=== PATIENT | female | born 1945 | race Caucasian/White ===

== ENCOUNTER 2023-11-15 08:46 | Inpatient (IN) | payer MEDICARE, OTHER, SELFPAY ==
[2023-11-08 12:35] VITALS: BMI 35.4
[2023-11-15] VITALS (13 sets, daily range): BP systolic 118–158; BP diastolic 44–78; PULSE 61–76; RESP 12–16; TEMP 36.1–37.1; O2SAT 94–98; BMI 35.4
--- NOTE | 2023-11-15 06:00 | DI.RAD.S_ITS ---
PROCEDURE: XR KNEE RT 1TO2V INDICATIONS: post-op TKA TECHNIQUE: 2 view(s) of the knee acquired. [facility] [place], XR KNEE ARTHRITIC SERIES BI, 06/02/2023, 15:26. FINDINGS: Bones: Patient is status post knee joint arthroplasty. Hardware components are in expected positions. Visualized bony structures are intact. Soft tissues: Overlying postoperative changes are noted. IMPRESSION: Expected post-operative appearance of a knee arthroplasty. Dictated by: Ismael Ford M.D. on 11/15/2023 at 17:11 Approved by: Ismael Ford M.D. on 11/15/2023 at 17:12
[2023-11-15] MEDS: CELECOXIB 200 MG CAPSULE PO (09:26)
[2023-11-15] MEDS: LACTATED RINGERS 1,000 ML 42 ML IV ×2 (09:26→13:00)
[2023-11-15] MEDS: ACETAMINOPHEN 325 MG TABLET 975 MG PO (09:26)
[2023-11-15] MEDS: VANCOMYCIN 1,000 MG/200 ML PIGGYBACK 200 MG IV (09:44)
--- NOTE | 2023-11-15 10:10 | PM.PREOP ---
Pre-operative Note Interval Note History & Physical reviewed/Exam performed by Physician: Yes Changes to H&P: No
--- NOTE | 2023-11-15 10:10 | PM.OP.1 ---
Operative Date/Time/Diagnoses Date of procedure: 11/15/23 Time of procedure: 11:00 Pre-op diagnosis: Right total knee arthroplasty Post-op diagnosis: same Procedure & Clinicians Procedure: Right total knee Same procedure as scheduled: Yes Indications: The patient has had progressively worsening right knee pain with radiographic changes consistent with arthritis. Non-operative management has failed and the patient has requested total knee replacement. The risks, benefits and alternatives to surgery were discussed with the patient prior to proceeding. Risks discussed included, but were not limited to, failure to relieve pain, stiffness, infection, nerve damage, deep venous thrombosis, pulmonary embolism, stroke, coma, heart attack, permanent paralysis and , as well as the potential need for eventual revision of the prosthetic. Surgeon: Zoila Davies Cloth Measurer Machine: Stephon Baron Anesthesia Type: Spinal Operative Notes Findings: Severe right knee OA, adequate stability Closure Type: primary Specimen(s): none sent Prosthetic devices, grafts, tissues, transplants, or devices: Davies and nephew BCS 2 size femur 8, size 7 tibia, +9 poly, 35 x 7-1/2 mm patella Estimated Blood Loss (mL): 250 Blood products transfused: none Tourniquet time (min): 113 Procedure in detail: The patient was seen in the pre-operative area, where the patient identified the right knee as the operative site and this was marked with my initials. The patient received pre-operative antibiotics, and was taken to the operating room and placed on the operative table in the supine position. After satisfactory anesthesia, a work order detailer out was performed. The right leg was encircled with a tourniquet about the proximal thigh, and the leg was prepared from the toes to the tourniquet with ChloroPrep in the usual fashion and draped through sterile drapes. The leg was elevated and exsanguinated with Eschmark bandage and the tourniquet inflated to [300] mmHg pressure. A PA was used during the procedure and was essential for intraoperative retraction of the components and safe implantation of the components. She had a significant knee flexion contracture about 20? and 13? of valgus. The knee was approached through an approximately 20 cm incision centered over the patella and carried into the knee through a medial parapatellar arthrotomy. Portion of the medial and lateral meniscus was resected. Soft tissue was carefully mobilized around the patella the patella was measured with a caliper. Bone was resected from the patella and the patellar height was reconstituted with up an appropriate sized patellar component. A cover was then placed on the patella. A small amount of additional medial and lateral meniscus was resected. Cori pins were placed in the femur for robot assisted navigation and the tibial had pins was placed on the tibia and for robotic assisted navigation. The knee was meticulously mapped. The patient was placed through a range of motion and we took readings for stressed and non stressed range of motion. A plan was taken and meticulously adjusted to optimize stability and range of motion. It looked like an appropriate distal femoral cut and the cut was made with robotic assisted burring. Drill holes were placed in the tibia using the bur and navigation. The appropriate size femoral guide was placed on the distal femur and finishing cuts were made. There was no evidence of notching. The anterior, posterior and chamfer cuts were then made. The posterior osteophytes and soft tissues were then removed. The posterior capsule was injected with part of a mixture of 60 ml 0.25% Marcaine mixed with 20 ml Exparel for post operative pain control. The remainder of this mixture was injected into the capsule and subcutaneous tissues during cement curing. The tibia guide was carefully navigated and then pinned into place. It looked like an appropriate tibial cut. The patient was placed in extension residual medial and lateral meniscus as well as any residual bone was carefully resected. [No] additional tibia was resected. Hemostasis was achieved especially posteriorly. Additional local was injected into the posterior capsule. The femoral component was trial was placed and the notch was finished. Trial tibial and femoral components were then placed and the knee placed through a range of motion. Range of motion was [0-120], with good stability throughout the range. The trials were then removed, and the tibia was finished. The bone was prepared with pulsatile lavage, and dried with a sponge. Cement was applied and the final prosthetics placed. Excess cement was removed during and after cement curing. A brief Betadine soak was performed. After confirming there was no extruded cement posteriorly, the final tibial insert was placed. The knee was copiously irrigated and the tourniquet deflated. Hemostasis was obtained with the Bovie cautery. The capsule was closed with interrupted Vicryl. The subcutaneous layer was closed with barbed sutures, and the skin with a running 3-0 V-Lock suture and skin butch. An naomi dressing was applied and the patient was taken to recovery having tolerated the procedure well. Complications: none Post-operative Condition: stable Disposition: Acute Care Plan for aftercare: The patient will be maintained on a standard total knee replacement protocol with weight bearing as tolerated. The patient will receive aspirin and sequential compression devices for DVT prophylaxis. The patient will be discharged home when safe for the home environment.
--- NOTE | 2023-11-15 11:03 | SUR.PREOP ---
Block start time [1048] . Monitoring initiated and maintained throughout procedure. Oxygen and medications given per anesthesiologist instructions. Patient remained stable throughout procedure, no adverse reactions noted. Block end time [1100].
[2023-11-15] MEDS: CEFAZOLIN 2 GM/100 ML PREMIX 100 ML IV ×2 (11:05→18:08)
[2023-11-15] MEDS: TRANEXAMIC ACID 1,000 MG VIAL 1000 MG INJ ×2 (11:15→13:39)
--- NOTE | 2023-11-15 11:46 | SUR.OPER ---
Supine on padded OR bed. Pillow under head, arms secured on padded armboards <90 degree abduction. Safety belt across torso. Non-operative leg secured with tape over blanket over lower leg. Operative leg secured in Fadi positioner. Foam padded brace at thigh of operative leg.
[2023-11-15] MEDS: BUPIVACAINE 0.25% (PF) 60 ML, EPINEPHrine 0.3 MG INJ (12:05)
[2023-11-15] MEDS: BUPIVACAINE LIPOSOME 266 MG/20 ML VIAL INJ (12:06)
[2023-11-15] MEDS: OXYCODONE IR 5 MG TABLET PO (14:21)
[2023-11-15] MEDS: ONDANSETRON 4 MG/2 ML INJ IV (14:21)
[2023-11-15] MEDS: LACTATED RINGERS 1,000 ML 100 ML IV (15:27)
[2023-11-15] MEDS: ACETAMINOPHEN 325 MG TABLET 650 MG PO (18:08)
[2023-11-15] MEDS: IBUPROFEN 400 MG TABLET PO (18:44)
[2023-11-15] MEDS: TRAZODONE 50 MG TABLET PO (20:14)
[2023-11-15] MEDS: DOCUSATE 100 MG CAPSULE PO (20:14)
[2023-11-15] MEDS: ASPIRIN EC 81 MG TABLET PO (20:14)
[2023-11-15] MEDS: ATORVASTATIN 20 MG TABLET 10 MG PO (20:14)
[2023-11-16] MEDS: CEFAZOLIN 2 GM/100 ML PREMIX 100 ML IV (02:40)
[2023-11-16 04:40] VITALS: BP 122/48; PULSE 57; RESP 16; TEMP 36.8; O2SAT 96
[2023-11-16 05:42] LABS: Hematocrit 30.8 % (36-46); Hemoglobin 10.5 g/dL (12.0-16.0)
[2023-11-16] MEDS: ACETAMINOPHEN 325 MG TABLET 650 MG PO ×2 (06:28→13:41)
--- NOTE | 2023-11-16 06:43 | PM.DS.1 ---
History of Present Illness History of Present Illness Date Patient Seen: 11/16/23 Time Patient Seen: 06:43 Chief complaint: INPT Narrative: Operative Date/Time/Diagnoses Date of procedure: 11/15/23 Time of procedure: 11:00 Pre-op diagnosis: Right total knee arthroplasty Post-op diagnosis: same Procedure & Clinicians Procedure: Right total knee Same procedure as scheduled: Yes Indications: The patient has had progressively worsening right knee pain with radiographic changes consistent with arthritis. Non-operative management has failed and the patient has requested total knee replacement. The risks, benefits and alternatives to surgery were discussed with the patient prior to proceeding. Risks discussed included, but were not limited to, failure to relieve pain, stiffness, infection, nerve damage, deep venous thrombosis, pulmonary embolism, stroke, coma, heart attack, permanent paralysis and , as well as the potential need for eventual revision of the prosthetic. Surgeon: Zoila Davies Machinist Supervisor Outside: Stephon Baron Anesthesia Type: Spinal Operative Notes Findings: Severe right knee OA, adequate stability Closure Type: primary Specimen(s): none sent Prosthetic devices, grafts, tissues, transplants, or devices: Davies and nephew BCS 2 size femur 8, size 7 tibia, +9 poly, 35 x 7-1/2 mm patella Estimated Blood Loss (mL): 250 Blood products transfused: none Tourniquet time (min): 113 Discharge Providers Provider Date of admission: 11/15/23 08:46 Discharge Date: 11/16/23 Primary care physician: HAZEL Landon Consults: 11/15/23 06:00 Consult to Anesthesiology Routine Comment: Consulting Provider: Anesthesiologist Reason for consultation: Regional block for post operative pain control 11/15/23 14:51 Consult to Discharge Planning Routine Comment: Consult to Occupational Therapy Evaluate & Treat Comment: Physician Instructions: Evaluate and treat Consult to Physical Therapy Evaluate & Treat Comment: Physician Instructions: postop TKA protocol Discharge provider: Brittany Gore PA-C Summary Hospital Course Discharge Diagnosis: Right knee osteoarthritis, s/p right total knee arthroplasty Hospital Course: Ms Marquez's hospital course was unremarkable. On the morning of POD# 1, she was feeling well and wanted to go home. She was eating and voiding without difficulty and her pain was well-controlled w/ Tylenol. She had not yet been evaluated by PT when I saw her. She has a remote h/o hepatitis but says she can take APAP without issue. Exam Vital Signs (past 8 hours): - 11/15/23 22:47 11/16/23 04:40 Temperature 98.1 F 98.2 F Pulse Rate 61 57 L Respiratory Rate 16 16 Blood Pressure 119/44 L 122/48 L Pulse Oximetry 95 96 Oxygen Flow Rate 0 Oxygen Delivery Method Room Air Oxygen Flow Rate 0 Narrative Exam Narrative: 4/5 strength in hip flexors, quadriceps, hamstrings; 5/5 DF, PF, EHL on right. Sensation to light touch intact throughout RLE. Calf soft, compressible, nontender. JEIMY dressing w/ scant bloody drainage, functioning. 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 ASA 81mg BID x 6 weeks for VTE prophylaxis. Pt has pain meds at home. F/u in office in 2 weeks as scheduled. Discharge Plan Discharge Plan Patient Disposition: Home Discharge orders & Medications Prescriptions: Continued magnesium oxide 400 MG tablet 400 mg PO QDAY Qty: 0 omega 6-yrd-lmy-fish oil [Fish Oil] 1,000 MG capsule 1,000 mg PO QDAY Qty: 0 turmeric root extract 500 mg Capsule 2,000 mg PO DAILY Qty: 0 trazodone 50 mg Tablet 50 mg PO BEDTIME atorvastatin 10 mg Tablet 10 mg PO BEDTIME hydrochlorothiazide 25 mg Tablet 25 mg PO DAILY metoprolol succinate 25 mg Tablet Extended Release 24 Hr 25 mg PO DAILY lisinopril 40 mg Tablet 40 mg PO DAILY acetaminophen 500 mg Capsule 1,000 mg PO DAILY Follow up/Referrals: Malini Merida ARNP [Primary Care Provider] - Zoila Davies MD [Physician] - 11/29/23 1:30 pm (Follow up w/ Romulo Thompson PA-C, at [facility] office in [place].) Diet/Activity/Treatments Diet: Diet as Tolerated Activity: Walk frequently! Cold/Heat Therapy: Ice to knee as needed for pain. Skin/Wound/Dressing Care Dressing: May remove RALPH wrap and shower on 11/18/2023. Keep dressing in place until follow up in office. Battery light will start flashing red in 5-7 days, at which point you can cut off the battery pack and dispose of it, but keep the dressing on. No bathing or otherwise soaking incision. Call the office if the dressing becomes saturated inside. Visit Report/Discharge Packet Instructions: DI for Knee Replacement, DI for Prescription Opioid Use Stand Alone Forms: Patient Portal/API, Stroke Signs & Symptoms, Surgery Discharge Discharge Data Primary Care Provider: Malini Merida Quality VTE Deep Vein Thrombosis/Pulmonary Embolism Present on Admission: No
[2023-11-16 08:00] VITALS: BP 137/43; PULSE 63; RESP 16; TEMP 36.2; O2SAT 97
--- NOTE | 2023-11-16 08:40 | CM.DANOTE ---
Addendum entered and electronically signed by GONSALO Dominguez 11/16/23 11:02: [facility] called this COMPRESSED G[employer] PLANT WORKER, they can accept her and start services this Friday 11/17. Original Note: Initial DCP Assessment Visit Note Reviewed EMR and team rounds for pt's medical status and anticipated d/c needs. Met with pt and her friend at bedside to introduce self and role, pt found to be alert/oriented and able to engage in discussion re: her needs and preferences for home d/c continued support. This Ortho team did communicate with CM prior to her surgery that pt lives alone and would need SNF vs. home w/HH. Payor: Medicare Attending: Dr. Zoila Davies Pt is a 78 year-old F post-op day 1 following her R-knee total arthroplascty surgery. She had initially wanted to pay privately for SNF rehab followed by Home Health, however now has made arrangements with several friends and a paid cg to provide in-home care for the next 2-weeks to assist with her recovery needs. She does want Home Health. This [employer] WORKER provided the Medicare list of HH agencies, pt's preference is to move forward with a referral to [facility] for PT/OT. She will plan on continuing after HH ends with her already established OP PT provider. Friends are already lined up to drive her home later this morning. Faxed clinicals and called [facility] to initiate referral, placed orders in the EMR. No further d/c home needs are identified for CM intervention at this time. Will continue to monitor for any additional needs until she leaves. Discharge Planning/Care Management Advanced directive, confirm from FAMILY Start: 11/15/23 15:11 Freq: Q24H Status: Active Protocol: Document 11/15/23 15:18 BR (Rec: 11/15/23 15:19 BR [id number]) Advance Directive, confirm on record Time 15:18 Person contacted Pt Copy received No CM Discharge Assessment Start: 11/16/23 08:36 Freq: Status: Active Protocol: Document 11/16/23 08:36 DPL (Rec: 11/16/23 08:39 DPL [id number]) Discharge Planning Assessment Assigned Wireless Architect GONSALO Ray Advance Directives? Yes Advance Directives on File No History Provided By Patient,Medical Record Has Patient been admitted in last 30 No days? Prior Living Arrangements House Household Members none Type of transporation used prior to Drives own vehicle admit Independent with ADL's Yes Is patient alert and oriented? Yes Caregiver for Another No Community Services used prior to Physical Therapy admission: DME Already Rented / Owned FWW / Walker Patient/Family Preference Home with Home Health Barriers to Discharge No Discharge Plan Home Community Services Physical Therapy,Occupational Therapy Transportation Arrangement Friends Referrals Initiated Home Health If patient plan is home with home health Yes : Has signed face to face form been completed? Medicare Choice List Provided Yes Medicare choice list reviewed on patient electronic tablet with SNF/HH Preference [facility] Has Agency SNF been contacted Yes Whiteboard Updated in Patient Room with Yes name and ext. # of Wireless Architect Review Status In Process Please Provide Date Initial DC 11/16/23 Assessment Was Performed Pre-Anesthesia Assessment Start: 11/08/23 12:35 Freq: Status: Active Protocol: Document 11/08/23 12:35 CAB (Rec: 11/08/23 13:47 CAB [id number]) Pre-Anesthesia Assessment Patient Information Reviewed Via Phone Assessment Assessment Completed With Patient Diagnostic Results BMP/CMP,CBC,Urinalysis Comment Outside labs scanned No EKG identified Primary Care Provider Malini Merida Specialist Seen Manager Therapy,Orthopedist Primary Language Lithuanian Watch Parts Inspector Required No Height 165.1 cm Weight 96.615 kg Body Mass Index (BMI) 35.4 Hearing Ability Hearing Impaired Visual Assist Glasses Dentition Type Teeth, Natural Present,Teeth, Missing Barriers to Learning None Comment congenital absence of left external ear Hx Anesthesia Reactions No Hx Family Anesthesia Reaction No Hx Malignant Hyperthermia No Hx Blood Transfusions No Anesthesia Review Requested No Enrollment Clerk No alcohol intake current alcohol intake frequency holidays/special occasions only Smoking Status Never smoker Substance Use Type does not use Pain Present Pain Reported Musculoskeletal Symptoms Abnormal Gait,Difficulty Walking,Joint Pain History of Falling (Recent or History of Yes ) Patient is completely paralyzed or No completely immobile Prosthesis or Orthotic Device Cane,Front Wheel Walker Mental Status Oriented to own ability Is patient on oxygen? No Does patient have XAVIER/SOB No Hx Sleep Apnea Yes CPAP/BIPAP use prescribed and used routinely Will Bring CPAP/BIPAP DOS Yes Currently Taking a Beta Marcella Yes: Metoprolol Hx Chest Pain No Hx SOB No Hx Syncope or Dizziness Yes: Hx of vertigo Anti-Coagulant Therapy No Has a Manager Therapy Yes: Visit 08/31/[address] Moreira Cardiac Testing No: Echo @ [facility] 08/17/23 Hx Pacemaker/ICD No Pacemaker Rep Required? No Cardiac Clearance Received Yes Comment Cardiac records scanned and in surgery folder Diet Type At Home Regular Dysphagia No Gastrointestinal Symptoms None Bladder Pattern Incontinent Urinary Catheter Present No Hx Urinary Self Catheterization No Diabetes No HgbA1C 4.9 Date 06/08/23 Patient No Lactating No Hx Drug Resistant Organism No Presence of External or Internal Medical Yes: CPAP, right hip Devices prosthesis Received a COVID vaccine? Yes Received all doses? Yes Marital Status Single Lives With none Current Living Arrangements House Number of Floors (Floors) One Floor Support System Caregiver,Friend(s) Comment Pt working on a caregiver and has friends nearby Does the Patient Have Assistance After Yes Surgery Patient Discharge Plan Description Return Home Comment Pt advised possible overnight length of stay per surgeon Feels Safe in Current Environment Yes Been Physically Hurt or Threatened By a No Person in Current Environment Do you have thoughts of harming yourself None or others? Are you currently considering suicide? No Do you have a plan to hurt yourself or No Plan others? Do You Have Any Spiritual Beliefs That No May Affect Your HC Choices? Do You Have Any Cultural Practices That No May Affect Your HC Choices? Who Can We Speak to About Patient's Care Family, friends Identifying Code for Release of Patient Declines to issue Information Health Care Proxy/Next of Kin Bing Ashbymark anthony (good friend) Health Care Proxy Emergency Contact Name Bing Lyles (good friend) Emergency Contact Advance Directives? Yes Advance Directives on File No Requested Patient Bring Advanced Yes Directives DOS PAC Instructions Bring CPAP/BIPAP,Do not shave/ clip surgical site,Durable medical equipment,Medications to take/avoid,Nasal antibiotic ,No ETOH/petroleum product on skin DOS,NPO,Post-op transportation,Pre-surgical wash,Sensory aids,Sturdy shoes /comfortable clothes,Do not bring valuables and remove jewelry
[2023-11-16] MEDS: OXYCODONE IR 5 MG TABLET PO ×3 (09:03→22:21)
[2023-11-16 09:04] VITALS: BP 122/48; BP 137/43; PULSE 57; PULSE 63
[2023-11-16] MEDS: FISH OIL 1,000 MG CAPSULE 1000 MG PO (09:04)
[2023-11-16] MEDS: METOPROLOL ER 25 MG TABLET PO (09:04)
[2023-11-16] MEDS: MAGNESIUM OXIDE 400 MG TABLET PO (09:04)
[2023-11-16] MEDS: lisinopriL 20 MG TABLET 40 MG PO (09:04)
[2023-11-16] MEDS: ASPIRIN EC 81 MG TABLET PO ×2 (09:04→22:04)
[2023-11-16] MEDS: DOCUSATE 100 MG CAPSULE PO ×2 (09:05→22:05)
--- NOTE | 2023-11-16 09:24 | OT.IP.EVAL ---
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 Easy bruisability Hearing impaired Hepatitis A HTN (hypertension) Jaw deformity Non-sustained ventricular tachycardia DANITA on CPAP Osteoarthritis RLS (restless legs syndrome) Rosacea Surgical History (Last Reviewed 11/15/23 @ 09:31 by Komal Cody, RN) History of carpal tunnel surgery of left wrist History of carpal tunnel surgery of right wrist 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 Mobility and Gait Ambulating with 4WW, distances limited by knee pain bilaterally, able to walk around grocery store for shopping. Pt states that she some times uses a SPC. Activities of Daily Living and IADL's Pt states she was IND but that things were getting more difficult. Pt uses a reahcer and sock aide for LB dressing when knees were painful. Social History Household Members none Living Arrangements House Number of Floors (Floors) One Floor Number of Stairs To Enter/Railing? one step with rail Home Environment High Toilet,Walk in Shower,Tub /Shower Home Equipment Front Wheel Walker,Four Wheel Walker,Straight Cane,Raised Toilet Seat w/Armrests,Cyber Special Agent ,Sock Aid,Lift Recliner,Grab Bars Near Toilet,Grab Bars In Shower Employment Status Retired Additional Social History Comment has friends and paid caregiver assist planned for when she discharges home M2 OT-IP Current Condition Start: 11/16/23 16:11 Freq: Status: Active Protocol: Document 11/16/23 16:11 CGR (Rec: 11/16/23 16:36 CGR [id number]) Occupational Therapy Current Condition Current Condition Evaluation Date 11/16/23 Treatment Diagnosis R TKA, WBAT Diagnosis Onset Date 11/15/23 Weight Bearing Status Weight Bearing Status Weight Bear as Tolerated M3 OT- IP Subjective and Pain Start: 11/16/23 16:11 Freq: Status: Active Protocol: Document 11/16/23 16:11 CGR (Rec: 11/16/23 16:36 CGR [id number]) OT- Subjective Occupational Therapy Visit Type Type Initial Evaluation Visit Start Time 08:46 Visit Stop Time 09:24 OT Pain Assessment Pain When Pain Assessed At Rest Pain Present Pain Present Pain Reported Location Right Knee Intensity 1 Scale Used Numeric (0 - 10) Management Techniques Distraction,Modification of Treatment,Re-positioning, Timing of Activity with Medications M4 OT- IP ADL's Start: 11/16/23 16:11 Freq: Status: Active Protocol: Document 11/16/23 16:11 CGR (Rec: 11/16/23 16:36 [id number] OT [id number] General Evaluation Self-Feeding Ability Independent Comments OT Self-Feeding Comments Pt finishing breakfast when OT entered OT ADL-Grooming Comments OT Grooming Comments Not performed, pt declined OT ADL-Oral Care Comments Oral Care Comments Not performed, pt declined OT ADL-Dressing General Eval Lower Body Dressing Ability Total Assistance Areas Needing Assistance Socks Comments OT Dressing Comments Pt states that she typically uses the drum drier operator and sock aid at home. OT ADL-Toileting General Evaluation Toileting Ability Maximum Assistance Areas Needing Assistance Perform Perineal Hygiene Comments OT Toileting Comments Pt transfered to [facility] for urination and was able to release significant gas. Pt needed assist with peircare. OT ADL-Bathing Comments OT Bathing Comments not performed M5 OT- IP IADL's Start: 11/16/23 16:11 Freq: Status: Active Protocol: Document 11/16/23 16:11 CGR (Rec: 11/16/23 16:36 CGR [id number]) OT-Instrumental Activities of Daily Living Deficits IADL Deficits Identified No Deficits Home Safety Awareness Awareness of Need for Assistance at Home Good Awareness Ability to Problem Solve Emergency Able to Problem Solve Situations Medication Management Medication Management No Deficits Identified Money Management Money Management No Deficits Identified Meal Preparation Meal Preparation Comments Concers regarding pt's ability to perform, pt states caregivers can assist. Color Paste Mixing Supervisor Color Paste Mixing Supervisor Comments Concers regarding pt's ability to perform, pt states caregivers can assist. 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 M6 OT- IP Functional Cognition Start: 11/16/23 16:11 Freq: Status: Active Protocol: Document 11/16/23 16:11 CGR (Rec: 11/16/23 16:36 CGR [id number]) Cognitive Factors Limiting Selfcare Function Cognitive Ability Level of Alertness Alert Patient Orientation Name,Age,Birthday,Month,Date, Year,Day of Week,Place, Situation Attention Span Ability Capable of Focused Attention, Capable of Sustained Attention Ability to Follow Commands Able to Follow One Step Commands with Increased Time, Able to Follow One Step Commands with Repetition Safety Awareness No Deficits Noted Cognitive Comments Cognitive Assessment Comments Pt appears to be at her baseline. OT- Vision and Hearing OT- Hearing Assessment OT- Hearing Assessment WFL OT- Vision Assessment Visual Acuity Glasses All The Time Visual Attentiveness WFL Occular Pursuits WFL Visual Convergence WFL Vision Assessment Comments Pt wears bifocals M7 OT- IP Mobility and Balance Start: 11/16/23 16:11 Freq: Status: Active Protocol: Document 11/16/23 16:11 CGR (Rec: 11/16/23 16:36 CGR [id number]) OT- Bed Mobility Assessment Supine to Sit Supine to Sit Assist Contact Guard Assistance, Bedrails Scooting Scooting to Edge of Bed Contact Guard Assistance, Bedrails OT-Transfer Assessment Sit to and From Stand Sit to and from Stand Moderate Assistance,1 Person Assistance Transfers Transfer Ability Moderate Assistance,1 Person Assistance Technique Transfer Destination Bed,Bedside Commode,Chair Transfer Technique Stand Step Pivot Devices Transfer Assistive Devices Gait Belt,Front Wheeled Walker Comments Mobility Comments Pt was able to stand and transfer to BSC at bedside, then return to edge of bed then transfer to chair brought to bedside. OT- Gait Assessment Comments Gait Ability Comments only transfers performed OT- Balance Assessment Sitting Balance and Reactions Static Sitting Balance Ability Good Dynamic Sitting Balance Ability Good M8 OT- IP Objective Assessments Start: 11/16/23 16:11 Freq: Status: Active Protocol: Document 11/16/23 16:11 CGR (Rec: 11/16/23 16:36 CGR [id number]) OT Gross Range of Motion Upper Extremity Range of Motion Assessment Right Impaired ROM Impairments R shld 0-45 OT Strength Comments Strength Comments R shld not tested L shld 3+/5 B arms and hands 4-/5 OT- Coordination Assessment Upper Extremity Finger to Nose Test Within Functional Limits Finger Tapping Test Within Functional Limits OT-Muscle Tone Assessment Muscle Tone WNL Yes OT Sensation Assessment Comments Summary Comments Pt states she has tingling in both hands but this is her baseline. Edema Edema Absent M9 OT- IP Assessment and Plan Start: 11/16/23 16:11 Freq: Status: Active Protocol: Document 11/16/23 16:11 CGR (Rec: 11/16/23 16:36 CGR [id number]) OT Summary Assessment and Plan Potential Rehabilitation Potential Good Analytic Complexity at Evaluation High Summary OT Impairments Pain,Range of Motion,Strength, Balance,Sensation,Functional Mobility,Grooming,Dressing, Toileting,Bathing,Toilet Transfers,Shower Transfers, Activity Tolerance Progress Towards Goals Slow Progress due to Pain,Slow Progress due to Activity Tolerance Assessment Summary Pt presents as a high complexity evaluation s/p admit for R TKA. Pt is wBAT but has significant pain to her non surgical knee making it difficult for her to perform mobility at this time. Pt needed mod a from bed to BSC and max a for pericare. Pt is not ready for discharge home and this time. Pt is likely most appropriate for SNF given her mobility limitations. Recommend d/c to SNF unless significant strides in mobility are realized. Goals Grooming Goal Independent Dressing Goal Independent Toileting Goal Independent Bathing Goal Independent Toilet Transfer Goal Independent Shower Transfer Goal Independent Days to Meet Goals 15 Frequency of Treatment Frequency Of Treatment Once a Day Treatment Plan OT Treatment Plan ADL Training,Functional Mobility,Patient/Family Education,Discharge Planning Other Treatment Recommendations and Next ADLS standing if able, shower, Treatment Focus toileting Discharge Recommendations OT Discharge Recommendations SNF Rehab Transportation Needs at Discharge Wheelchair/Cabulance
[2023-11-16 09:35] VITALS: PULSE 64
--- NOTE | 2023-11-16 12:00 | PT.IIE ---
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) Medical History (Last Reviewed 11/15/23 @ 09:31 by Komal Cody, RN) Carpal tunnel syndrome, bilateral Congenital absence of left external ear Easy bruisability Hearing impaired Hepatitis A HTN (hypertension) Jaw deformity Non-sustained ventricular tachycardia DANITA on CPAP Osteoarthritis RLS (restless legs syndrome) Rosacea Physical Therapy Inpatient Evaluation/Re-Eval M1 PT/OT-IP Prior Functional Status Start: 11/16/23 13:57 Freq: NEEDED Status: Active Protocol: Document 11/16/23 12:00 DLM (Rec: 11/16/23 14:22 DLM [id number]) Medical Review Prior Functional Status Medical History Reviewed Yes Diet/Fluid Consistency Regular Communication WFL Mobility and Gait Ambulating with 4WW, distances limited by knee pain bilaterally, able to walk around grocery store for shopping Activities of Daily Living and IADL's Independent Social History Household Members none Living Arrangements House Number of Floors (Floors) One Floor Number of Stairs To Enter/Railing? one step with rail Home Environment High Toilet,Walk in Shower,Tub /Shower Home Equipment Raised Toilet Seat w/Armrests, Cooling Room Attendant,Sock Aid,Lift Recliner Employment Status Retired Additional Social History Comment has friends and pain caregiver assist planned for when she discharges home M2 PT-IP Current Condition Start: 11/16/23 13:57 Freq: NEEDED Status: Active Protocol: Document 11/16/23 12:00 DLM (Rec: 11/16/23 14:22 DLM [id number]) Physical Therapy Current Condition Current Condition Evaluation Date 11/16/23 Treatment Diagnosis right total knee arthroplasty, impaired gait and mobility Onset Date 11/15/23 M3 PT-IP Subjective Start: 11/16/23 13:57 Freq: NEEDED Status: Active Protocol: Document 11/16/23 12:00 DLM (Rec: 11/16/23 14:22 [facility] [id number]) Subjective Physical Therapy Visit Type Type Initial Evaluation Visit Start Time 11:20 Visit Stop Time 12:00 Number of FIRE ALARM TECHNICIAN Visits 0 Physical Therapy Visit Comments Patient Comments Pt reports the pain makes it hard to move. Patient Goals Discharge home with assistance Therapy Pain Assessment Pain When Pain Assessed During Mobility Pain Present Pain Present Pain Reported Location Right Knee Intensity 4 Scale Used Numeric (0 - 10) Description Aching,Tender,With Movement Pain Behaviors Facial Grimacing,Guarding, Wincing Pain Management Techniques Apply Cold,Elevation,Re- positioning,Timing of Activity with Medications M4 PT-IP Mobility and Gait Start: 11/16/23 13:57 Freq: NEEDED Status: Active Protocol: Document 11/16/23 12:00 DL (Rec: 11/16/23 14:22 [facility] [id number]) PT-Transfer Assessment Sit to and From Stand Sit to and from Stand Maximum Assistance,1 Person Assistance,Use of Upper Extremities Equipment Transfer Assistive Device Gait Belt,Front Wheeled Walker Transfers Transfer Destination Chair,Bedside Commode Transfer Technique Stand Step Pivot Transfer Ability Level of Assist Minimal Assistance,Moderate Assistance,Use of Upper Extremities Comments Mobility Comments Pt up in recliner and she was left up for lunch, feet elevated and ice on knee after activity. She has more difficulty with sit to stand from the recliner than the bedside commode. She needed maximal assistance for sit to stand from the recliner and moderate assistance from bed side commode. She needs cuing to keep feet back under her to assist with sit to stand; pt tends to keep them very far out in front of her. Audible crepitus in other joints during sit to stand which pt reports is coming from her left knee. She has difficulty getting her balance with initial standing position and needs extra time and assist to prevent posterior losses of balance. Gait Assessment Gait Gait Assistance Required: Contact Guard Assist,Minimum Assistance Distance (Feet) 5 Able to Maintain Weight Bearing Status Yes During Gait Assistive Devices Assistive Device Gait Belt,Front Wheeled Walker Gait Deviations General Gait Pattern Antalgic,Decreased Stride Length,Flexed Trunk,Step-to Gait Factors Limiting Gait Function Factors Limiting Gait Function Decreased Activity Tolerance, Decreased Strength,Limited Range of Motion,Pain,Poor Balance Comments Gait Comments Pt has very flexed posture in standing and during gait. She has difficulty using UE's to compensate for right LE pain and weakness. She reports pain and fatigue limit her distance of gait at this time. Pt ambulated to the bedside commode, urinated then returned to the recliner (2 x 5 feet of gait) this visit. Stair Climbing Assessment Comments Stair Climbing Comments one step to enter house, pt is not ready for stair training this visit due to limited gait tolerance PT-Balance Assessment Sitting Balance and Reactions Static Sitting Balance Ability Normal Dynamic Sitting Balance Ability Normal Standing Balance and Reactions Static Standing Balance Ability Fair Dynamic Standing Balance Ability Fair Device Used FWW M5 PT-IP Objective Assessments Start: 11/16/23 13:57 Freq: NEEDED Status: Active Protocol: Document 11/16/23 12:00 DLM (Rec: 11/16/23 14:22 DLM [id number]) Orientation Orientation/Cognition Level of Alertness Alert Orientation Name,Age,Birthday,Month,Date, Year,Day of Week,Place, Situation Language Function Ability No Deficits Noted Safety Awareness Understands Safety Issues Memory Description No Deficits Noted Gross Range of Motion Upper Extremity ROM Assessment Right Impaired Impairments see OT notes, [facility] Lower Extremity ROM Assessment Right Impaired Impairments post-op TKA, knee 20-70 degrees with pain Strength Upper Extremity Strength Assessment Right Impaired Shoulder shoulder decreased, see OT notes for details Lower Extremity Strength Assessment Bilaterally Impaired Hip flex 2+/5 on right, left 4/5 Knee ext 2+/5 on right, left 4/5 Ankle DF 4+/5 Comments Strength Comments post-op pain right knee limits functional strength pt reports arthritic pain in left knee limits functional strength Coordination Assessment Gross Coordination Gross Coordination WNL Sensation Assessment Sensation Gross Sensation Right UE Impaired,Left UE Impaired Sensation Description Tingling Comments Sensation Comments hx neuropathy per chart, pt reports tingling in fingers, dale wrap covering right LE post-op Muscle Tone Muscle Tone WNL Yes M6 PT-IP Treatment Start: 11/16/23 13:57 Freq: NEEDED Status: Active Protocol: Document 11/16/23 12:00 DLM (Rec: 11/16/23 14:22 DLM [id number]) Physical Therapy Treatment Exercises Exercises Ankle Pumps,Quad Sets,Heel Slides,Straight Leg Raises, Short Arc Quads,Passive Knee Extension Hang,Seated Knee Flexion/Extension Education Education Provided Weight Bearing Status,Post-Op Packet,Safety M7 PT-IP Assessment and Plan Start: 11/16/23 13:57 Freq: NEEDED Status: Active Protocol: Document 11/16/23 12:00 DLM (Rec: 11/16/23 14:22 DLM [id number]) PT Summary Assessment and Plan Potential Rehabilitation Potential Good Status of Condition at Evaluation Evolving Summary Impairments Pain,ROM,Strength,Balance,Bed Mobility,Transfers,Gait, Activity Tolerance Assessment Summary Kate is alert and sitting up in the recliner. She got up with Occupational Therapy earlier today. Pt reports right knee pain is making mobility/gait difficulty today . She needs a lot of assistance for sit to stand and transfers. She does better with gait with the FWW but only tolerates very short distances with c/o pain and fatigue. She is not safe to discharge home at this time. Pt will need continued skilled Physical Therapy to assist with her functional recovery including gait for household distances and stair training on one step to get into the house. Pt could benefit from SNF rehab at discharge before going home. Will continue to assess for discharge planning as she progresses with therapy . Goals Bed Mobility Goal Independent Transfer Goal Independent,Front Wheeled Walker Gait Goal Independent,Front Wheel Walker Gait Distance 50 feet Other Goals up/down one step with rail and min assist Days to Meet Goals 10 Frequency of Treatment Frequency Of Treatment Twice a Day Treatment Plan Physical Therapy Treatment Plan Bed Mobility Training,Transfer Training,Gait Training, Therapeutic Exercise,Balance Retraining,Post Op Education, Discharge Planning,Hot or Cold Pack,Neuromuscular Re-ed Precautions Other Precautions fall risk, other arthritic joints with crepitus Weight Bearing Status Weight Bearing Status Weight Bear as Tolerated Allowed Weight Bearing Amount (enter % right knee or #) (%) Recommendations To Nursing Amount of Assist Needed 1 Person Assist,2 Person Assist Discharge Recommendations PT Discharge Recommendations SNF Rehab Transportation Needs at Discharge Wheelchair/Cabulance
--- NOTE | 2023-11-16 13:30 | CM.DPC ---
DCP Cont-Update Pt is unable to bear weight without a 2-person assist due to the non-surgical knee not being strong enough to stand/walk more than a few steps. Pt will remain inpt and we will continue to monitor for final disposition of home w/HH vs. SNF. If she is going to need SNF, she will qualify as of 11/17.
--- NOTE | 2023-11-16 14:35 | PT.IPTN ---
Current Diagnoses Unilateral primary osteoarthritis, right knee (11/15/23) Surgery Performed Operation Date: 11/15/23 10:45 Actual Procedures p Total Knee Arthroplasty - Robot(Right) - Zoila Davies MD Physical Therapy Treatment Note M2 PT-IP Current Condition Start: 11/16/23 13:57 Freq: NEEDED Status: Active Protocol: Document 11/16/23 12:00 DLM (Rec: 11/16/23 14:22 DLM [id number]) Physical Therapy Current Condition Current Condition Evaluation Date 11/16/23 Treatment Diagnosis right total knee arthroplasty, impaired gait and mobility Onset Date 11/15/23 M3 PT-IP Subjective Start: 11/16/23 13:57 Freq: NEEDED Status: Active Protocol: Document 11/16/23 15:15 TS (Rec: 11/16/23 15:35 TS [id number]) Subjective Physical Therapy Visit Type Type Treatment Note Visit Start Time 14:35 Visit Stop Time 15:09 Number of GYM INSTRUCTOR Visits 1 Physical Therapy Visit Comments Patient Comments Pt agreeable to PT. Therapy Pain Assessment Pain When Pain Assessed During Mobility Pain Present Pain Present Pain Reported M4 PT-IP Mobility and Gait Start: 11/16/23 13:57 Freq: NEEDED Status: Active Protocol: Document 11/16/23 15:15 TS (Rec: 11/16/23 15:35 TS [id number]) PT-Transfer Assessment Sit to and From Stand Sit to and from Stand Moderate Assistance,Maximum Assistance,1 Person Assistance ,Use of Upper Extremities Equipment Transfer Assistive Device Gait Belt,Front Wheeled Walker Comments Mobility Comments Pt performed ankle pumps, quad sets and heel slides prior to mobility. STS from chair MaxA with FWW, pt heavily retroleans and is unsteady coming into standing. Pt ambulated in room ~10'Thea/CGA with use of FWW, pt requires heavy UE assist on FWW, has very flexed posture. She sat EOB requiring max cues for sequencing. STS from bed ModA with FWW, pt ambulated back to chair ~10'Thea/CGA with FWW. Pt was left in chair, all needs met. Gait Assessment Gait Gait Assistance Required: Contact Guard Assist,Minimum Assistance Distance (Feet) 20 Able to Maintain Weight Bearing Status Yes During Gait Assistive Devices Assistive Device Gait Belt,Front Wheeled Walker Gait Deviations General Gait Pattern Antalgic,Decreased Stride Length,Flexed Trunk,Step-to Gait Factors Limiting Gait Function Factors Limiting Gait Function Decreased Activity Tolerance, Decreased Strength,Limited Range of Motion,Pain,Poor Balance Comments Gait Comments Pt has very flexed posture in standing and during gait. She has difficulty using UE's to compensate for right LE pain and weakness. Stair Climbing Assessment Comments Stair Climbing Comments one step to enter house, pt is not ready for stair training this visit due to limited gait tolerance PT-Balance Assessment Sitting Balance and Reactions Static Sitting Balance Ability Normal Dynamic Sitting Balance Ability Good Standing Balance and Reactions Static Standing Balance Ability Fair Dynamic Standing Balance Ability Fair Device Used FWW M5 PT-IP Objective Assessments Start: 11/16/23 13:57 Freq: NEEDED Status: Active Protocol: Document 11/16/23 12:00 DLM (Rec: 11/16/23 14:22 DLM [id number]) Orientation Orientation/Cognition Level of Alertness Alert Orientation Name,Age,Birthday,Month,Date, Year,Day of Week,Place, Situation Language Function Ability No Deficits Noted Safety Awareness Understands Safety Issues Memory Description No Deficits Noted Gross Range of Motion Upper Extremity ROM Assessment Right Impaired Impairments see OT notes, pt has hx injury to righ shoulder Lower Extremity ROM Assessment Right Impaired Impairments post-op TKA, knee 20-70 degrees with pain Strength Upper Extremity Strength Assessment Right Impaired Shoulder shoulder decreased, see OT notes for details Lower Extremity Strength Assessment Bilaterally Impaired Hip flex 2+/5 on right, left 4/5 Knee ext 2+/5 on right, left 4/5 Ankle DF 4+/5 Comments Strength Comments post-op pain right knee limits functional strength pt reports arthritic pain in left knee limits functional strength Coordination Assessment Gross Coordination Gross Coordination WNL Sensation Assessment Sensation Gross Sensation Right UE Impaired,Left UE Impaired Sensation Description Tingling Comments Sensation Comments hx neuropathy per chart, pt reports tingling in fingers, dale wrap covering right LE post-op Muscle Tone Muscle Tone WNL Yes M6 PT-IP Treatment Start: 11/16/23 13:57 Freq: NEEDED Status: Active Protocol: Document 11/16/23 15:15 TS (Rec: 11/16/23 15:35 TS [id number]) Physical Therapy Treatment Exercises Exercises Ankle Pumps,Quad Sets,Heel Slides Education Education Provided Weight Bearing Status,Post-Op Packet,Safety M7 PT-IP Assessment and Plan Start: 11/16/23 13:57 Freq: NEEDED Status: Active Protocol: Document 11/16/23 15:15 TS (Rec: 11/16/23 15:35 TS [id number]) PT Summary Assessment and Plan Potential Rehabilitation Potential Good Summary Impairments Pain,ROM,Strength,Balance,Bed Mobility,Transfers,Gait, Activity Tolerance Progress Towards Goals Slow Progress due to Pain,Slow Progress due to Activity Tolerance Assessment Summary Landen mobility is limited by her ongoing pain and poor activity tolerance. She is MaxA for STS from chair with max cues for sequencing. She retroleans and has poor balance coming into standing. She did progress her gait to ~ 20'. She has a slow step to gait and requires Thea for balance and FWW management. She continues to tolerate short walks in room. PT continues to recommend SNF rehab at this time. Pt reports having a friend that was going to assist her at home but pt believes she is not doing well enough for her friend to assist. She also planned to have a caregiver assist her as needed when her friend wasn't available. If pt was to go home she would require 24/7 assist at this time, which she does not currently have. Goals Bed Mobility Goal Independent Transfer Goal Independent,Front Wheeled Walker Gait Goal Independent,Front Wheel Walker Gait Distance 50 feet Other Goals up/down one step with rail and min assist Days to Meet Goals 10 Frequency of Treatment Frequency Of Treatment Twice a Day Treatment Plan Physical Therapy Treatment Plan Bed Mobility Training,Transfer Training,Gait Training, Therapeutic Exercise,Balance Retraining,Post Op Education, Discharge Planning,Hot or Cold Pack,Neuromuscular Re-ed Precautions Other Precautions fall risk, other arthritic joints with crepitus Weight Bearing Status Weight Bearing Status Weight Bear as Tolerated Allowed Weight Bearing Amount (enter % right knee or #) (%) Recommendations To Nursing Amount of Assist Needed 2 Person Assist Discharge Recommendations PT Discharge Recommendations SNF Rehab Transportation Needs at Discharge Wheelchair/Cabulance
--- NOTE | 2023-11-16 14:35 | PC.NURSE ---
Day shift: Pt having difficulty ambulating - 2 PA with getting OOB or up from chair + FWW to chair/BSC. Pain well controlled with PO oxycodone and APAP. Will continue to monitor.
[2023-11-16 15:55] VITALS: BP 117/49; PULSE 62; RESP 16; TEMP 36.7; O2SAT 97
[2023-11-16] MEDS: IBUPROFEN 400 MG TABLET PO (16:29)
[2023-11-16] MEDS: polyethylene glycoL 3350 17 GM POWD.PACK PO (16:29)
[2023-11-16 20:00] VITALS: BP 105/41; PULSE 64; RESP 19; TEMP 36.7; O2SAT 97
[2023-11-16] MEDS: TRAZODONE 50 MG TABLET PO (22:04)
[2023-11-16] MEDS: ATORVASTATIN 20 MG TABLET 10 MG PO (22:05)
--- NOTE | 2023-11-17 07:22 | PM.PNPO.1 ---
Subjective Subjective Interval history: Kate is a 78 year old female who is POD#1 s/p right total knee arthroplasty by Dr. Davies. Today patient reports her pain is mild and well controlled but that she is struggling to get mobility/function back of her right knee. Patient lives alone, does not have a good support system and expresses concerns about d/c to home without support given her lack of mobility. She has been able to get out of bed to urinate with support but states she feels very unsteady. Denies any numbness or tingling of the RLE. Denies fever, chills, chest pain, or shortness of breath, nausea, vomiting. Exam Vital Signs (past 8 hours): Oxygen Delivery Method Room Air Oxygen Flow Rate 0 Narrative Exam Narrative: Patient lying comfortably in bed during our interview today. Const General: cooperative and healthy appearing Resp Effort & Inspection: normal respiratory effort and able to speak in complete sentences Cardio Rate: regular rate Skin General: no rashes or lesions noted Neuro General: patient alert, patient awake and patient oriented x3 Extrem Other: Grossly normal alignment, moderate right knee effusion. Joao dressing intact and functioning with scant bloody discharge. 5/5 strength with EHL, DF. 4/5 PF. Very limited ROM of the right knee. Sensation intact throughout the RLE. Calves soft and non-tender bilaterally. 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 Ice to the knee for additional pain control. 2) Stressed the importance of continuing to work on mobility. Plan to work with PT today. Weight bearing as tolerated. 3) Keep dressing clean and dry. No soaking the incision site in pools or tubs. Will work w/ CM to review SNF options for patient as she does not feel comfortable d/c to home with here severely limited ROM at this time, patient lives alone. Continue to aggressively work on improving ROM so patient would be more stable on her own. Likely d/c to SNF tomorrow. Quality VTE Deep Vein Thrombosis/Pulmonary Embolism Present on Admission: No
--- NOTE | 2023-11-17 07:40 | CM.DPC ---
DCP Cont. Reviewed chart and spoke with floor nurse, Anna. Met with pt at bedside to discuss the new plan to d/c to SNF rehab due to her inability to mobilize with therapies, and still requiring a 2-person assist. She states [facility] preference [facility]. [facility] and send clinicals for review. PASSAR completed and is with the face sheet. Pt will be ready for d/c to SNF tomorrow, 11/17.
[2023-11-17 08:00] VITALS: BP 129/67; PULSE 90; RESP 16; TEMP 36.6; O2SAT 98
[2023-11-17] MEDS: ACETAMINOPHEN 325 MG TABLET 650 MG PO ×2 (09:07→18:06)
[2023-11-17] MEDS: OXYCODONE IR 5 MG TABLET PO ×3 (09:07→21:14)
[2023-11-17 09:08] VITALS: BP 129/67; PULSE 90
[2023-11-17] MEDS: ASPIRIN EC 81 MG TABLET PO ×2 (09:08→21:16)
[2023-11-17] MEDS: DOCUSATE 100 MG CAPSULE PO ×2 (09:08→21:16)
[2023-11-17] MEDS: lisinopriL 20 MG TABLET 40 MG PO (09:08)
[2023-11-17] MEDS: METOPROLOL ER 25 MG TABLET PO (09:08)
[2023-11-17] MEDS: MAGNESIUM OXIDE 400 MG TABLET PO (09:09)
[2023-11-17] MEDS: hydroCHLOROthiazide 25 MG TABLET PO (09:16)
[2023-11-17] MEDS: FISH OIL 1,000 MG CAPSULE 1000 MG PO (09:16)
[2023-11-17 09:45] VITALS: PULSE 65
--- NOTE | 2023-11-17 10:00 | PT.IPTN ---
Current Diagnoses Unilateral primary osteoarthritis, right knee (11/15/23) Surgery Performed Operation Date: 11/15/23 10:45 Actual Procedures p Total Knee Arthroplasty - Robot(Right) - Zoila Davies MD Physical Therapy Treatment Note M2 PT-IP Current Condition Start: 11/16/23 13:57 Freq: NEEDED Status: Active Protocol: Document 11/16/23 12:00 DLM (Rec: 11/16/23 14:22 DLM [id number]) Physical Therapy Current Condition Current Condition Evaluation Date 11/16/23 Treatment Diagnosis right total knee arthroplasty, impaired gait and mobility Onset Date 11/15/23 M3 PT-IP Subjective Start: 11/16/23 13:57 Freq: NEEDED Status: Active Protocol: Document 11/17/23 10:24 TS (Rec: 11/17/23 10:34 TS [id number]) Subjective Physical Therapy Visit Type Type Treatment Note Visit Start Time 10:00 Visit Stop Time 10:23 Number of POTATO PEELER Visits 2 Physical Therapy Visit Comments Patient Comments Pt found resting in chair, reports getting up to commode this morning with nursing and was difficult but feels she is improving a little with her mobility. Therapy Pain Assessment Pain When Pain Assessed During Mobility Pain Present Pain Present Pain Reported M4 PT-IP Mobility and Gait Start: 11/16/23 13:57 Freq: NEEDED Status: Active Protocol: Document 11/17/23 10:24 TS (Rec: 11/17/23 10:34 TS [id number]) PT-Transfer Assessment Sit to and From Stand Sit to and from Stand Maximum Assistance,1 Person Assistance,Use of Upper Extremities Equipment Transfer Assistive Device Gait Belt,Front Wheeled Walker Comments Mobility Comments Pt performed ankle pumps, quad sets and AAROM heel slides x5 . STS from chair MaxA for retrolean, pt requires max cues for weight forward and L foot underneath her. She ambulated in room ~20'CGA/Thea with use of FWW, continues to have step to gait. Pt was left in chair, all needs met. Gait Assessment Gait Gait Assistance Required: Contact Guard Assist,Minimum Assistance Distance (Feet) 20 Able to Maintain Weight Bearing Status Yes During Gait Assistive Devices Assistive Device Gait Belt,Front Wheeled Walker Gait Deviations General Gait Pattern Antalgic,Decreased Stride Length,Flexed Trunk,Step-to Gait Factors Limiting Gait Function Factors Limiting Gait Function Decreased Activity Tolerance, Decreased Strength,Limited Range of Motion,Pain,Poor Balance Comments Gait Comments Pt continues to have flexed posture with gait, improves briefly with cues, tends to fall back into flexed posture. PT-Balance Assessment Sitting Balance and Reactions Static Sitting Balance Ability Good Dynamic Sitting Balance Ability Good Standing Balance and Reactions Static Standing Balance Ability Fair Dynamic Standing Balance Ability Fair Device Used FWW M5 PT-IP Objective Assessments Start: 11/16/23 13:57 Freq: NEEDED Status: Active Protocol: Document 11/16/23 12:00 DLM (Rec: 11/16/23 14:22 DLM [id number]) Orientation Orientation/Cognition Level of Alertness Alert Orientation Name,Age,Birthday,Month,Date, Year,Day of Week,Place, Situation Language Function Ability No Deficits Noted Safety Awareness Understands Safety Issues Memory Description No Deficits Noted Gross Range of Motion Upper Extremity ROM Assessment Right Impaired Impairments see OT notes, pt has hx injury to righ shoulder Lower Extremity ROM Assessment Right Impaired Impairments post-op TKA, knee 20-70 degrees with pain Strength Upper Extremity Strength Assessment Right Impaired Shoulder shoulder decreased, see OT notes for details Lower Extremity Strength Assessment Bilaterally Impaired Hip flex 2+/5 on right, left 4/5 Knee ext 2+/5 on right, left 4/5 Ankle DF 4+/5 Comments Strength Comments post-op pain right knee limits functional strength pt reports arthritic pain in left knee limits functional strength Coordination Assessment Gross Coordination Gross Coordination WNL Sensation Assessment Sensation Gross Sensation Right UE Impaired,Left UE Impaired Sensation Description Tingling Comments Sensation Comments hx neuropathy per chart, pt reports tingling in fingers, dale wrap covering right LE post-op Muscle Tone Muscle Tone WNL Yes M6 PT-IP Treatment Start: 11/16/23 13:57 Freq: NEEDED Status: Active Protocol: Document 11/17/23 10:24 TS (Rec: 11/17/23 10:34 [id number]) Physical Therapy Treatment Exercises Exercises Ankle Pumps,Quad Sets,Heel Slides Education Education Provided Weight Bearing Status,Post-Op Packet,Safety M7 PT-IP Assessment and Plan Start: 11/16/23 13:57 Freq: NEEDED Status: Active Protocol: Document 11/17/23 10:24 TS (Rec: 11/17/23 10:34 [id number]) PT Summary Assessment and Plan Potential Rehabilitation Potential Good Summary Impairments Pain,ROM,Strength,Balance,Bed Mobility,Transfers,Gait, Activity Tolerance Progress Towards Goals Slow Progress due to Pain,Slow Progress due to Activity Tolerance Assessment Summary Kate is making some progress with her mobility but she continues to be limited by her pain and poor activity tolerance. She is MaxA for STS from chair and continues to have a retrolean. She continues to have very flexed posture with standing and gait , does improve with cues. She continues to ambulate short distances in room and did not require sitting rest break this session. PT continues to recommend SNF to improve strength, functional mobility and activity tolerance. Goals Bed Mobility Goal Independent Transfer Goal Independent,Front Wheeled Walker Gait Goal Independent,Front Wheel Walker Gait Distance 50 feet Other Goals up/down one step with rail and min assist Days to Meet Goals 10 Frequency of Treatment Frequency Of Treatment Twice a Day Treatment Plan Physical Therapy Treatment Plan Bed Mobility Training,Transfer Training,Gait Training, Therapeutic Exercise,Balance Retraining,Post Op Education, Discharge Planning,Hot or Cold Pack,Neuromuscular Re-ed Precautions Other Precautions fall risk, other arthritic joints with crepitus Weight Bearing Status Weight Bearing Status Weight Bear as Tolerated Allowed Weight Bearing Amount (enter % Right knee or #) (%) Recommendations To Nursing Amount of Assist Needed 2 Person Assist Discharge Recommendations PT Discharge Recommendations SNF Rehab Transportation Needs at Discharge Wheelchair/Cabulance
--- NOTE | 2023-11-17 12:13 | OT.IP.TRT ---
Current Diagnoses Unilateral primary osteoarthritis, right knee (11/15/23) Surgery Performed Operation Date: 11/15/23 10:45 Actual Procedures p Total Knee Arthroplasty - Robot(Right) - Zoila Davies MD Occupational Therapy Treatment Note M2 OT-IP Current Condition Start: 11/16/23 16:11 Freq: Status: Active Protocol: Document 11/16/23 16:11 CGR (Rec: 11/16/23 16:36 CGR [id number]) Occupational Therapy Current Condition Current Condition Evaluation Date 11/16/23 Treatment Diagnosis R TKA, WBAT Diagnosis Onset Date 11/15/23 Weight Bearing Status Weight Bearing Status Weight Bear as Tolerated M3 OT- IP Subjective and Pain Start: 11/16/23 16:11 Freq: Status: Active Protocol: Document 11/17/23 13:51 CGR (Rec: 11/17/23 13:59 CGR [id number]) OT- Subjective Occupational Therapy Visit Type Type Treatment Note Visit Start Time 11:48 Visit Stop Time 12:13 Notes Pt agreeable to getting up to sink for ADLs OT Pain Assessment Pain When Pain Assessed At Rest Pain Present Pain Present Denied Pain M4 OT- IP ADL's Start: 11/16/23 16:11 Freq: Status: Active Protocol: Document 11/17/23 13:51 CGR (Rec: 11/17/23 13:59 CGR [id number]) OT MPO-Cfea-Ifcntln General Evaluation Self-Feeding Ability Independent Comments OT Self-Feeding Comments pt left with her lunch at end of session OT ADL-Grooming General Evaluation Grooming Ability Standby Assistance Areas Needing Assistance Combing/Brushing Hair,Face Washing Comments OT Grooming Comments standing at sink OT ADL-Oral Care General Eval Oral Care Ability Standby Assistance Areas of Assistance Brushing Teeth Comments Oral Care Comments standing at sink OT ADL-Dressing Comments OT Dressing Comments not performed OT ADL-Toileting General Evaluation Toileting Ability Standby Assistance Comments OT Toileting Comments pt urinated seated on BSC. She was able to perform front pericare OT ADL-Bathing Comments OT Bathing Comments not performed M5 OT- IP IADL's Start: 11/16/23 16:11 Freq: Status: Active Protocol: Document 11/16/23 16:11 CGR (Rec: 11/16/23 16:36 CGR [id number]) OT-Instrumental Activities of Daily Living Deficits IADL Deficits Identified No Deficits Home Safety Awareness Awareness of Need for Assistance at Home Good Awareness Ability to Problem Solve Emergency Able to Problem Solve Situations Medication Management Medication Management No Deficits Identified Money Management Money Management No Deficits Identified Meal Preparation Meal Preparation Comments Concers regarding pt's ability to perform, pt states caregivers can assist. Floral Manager Floral Manager Comments Concers regarding pt's ability to perform, pt states caregivers can assist. 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 M6 OT- IP Functional Cognition Start: 11/16/23 16:11 Freq: Status: Active Protocol: Document 11/16/23 16:11 CGR (Rec: 11/16/23 16:36 CGR [id number]) Cognitive Factors Limiting Selfcare Function Cognitive Ability Level of Alertness Alert Patient Orientation Name,Age,Birthday,Month,Date, Year,Day of Week,Place, Situation Attention Span Ability Capable of Focused Attention, Capable of Sustained Attention Ability to Follow Commands Able to Follow One Step Commands with Increased Time, Able to Follow One Step Commands with Repetition Safety Awareness No Deficits Noted Cognitive Comments Cognitive Assessment Comments Pt appears to be at her baseline. OT- Vision and Hearing OT- Hearing Assessment OT- Hearing Assessment WFL OT- Vision Assessment Visual Acuity Glasses All The Time Visual Attentiveness WFL Occular Pursuits WFL Visual Convergence WFL Vision Assessment Comments Pt wears bifocals M7 OT- IP Mobility and Balance Start: 11/16/23 16:11 Freq: Status: Active Protocol: Document 11/17/23 13:51 CGR (Rec: 11/17/23 13:59 CGR [id number]) OT-Transfer Assessment Sit to and From Stand Sit to and from Stand Maximum Assistance,1 Person Assistance Transfers Transfer Ability Minimal Assistance,1 Person Assistance Technique Transfer Destination Bedside Commode,Chair Transfer Technique Stand Step Pivot Devices Transfer Assistive Devices Gait Belt,Front Wheeled Walker Comments Mobility Comments Pt stood with max a from chair , she needs assist with placing feet and physical assist for sit to stand. Pt then ambualted with significantly hunched posture to sink for ADLs, then back to [facility] next to chair for urination and then stood with max a from [facility] and transfered back to chair. Pt with uncontrolled stand to sit even with vc to use arms etc. It appears that pt can't bend her L knee far enough to allow for a controlled descent. OT- Balance Assessment Sitting Balance and Reactions Static Sitting Balance Ability Fair Dynamic Sitting Balance Ability Fair M8 OT- IP Objective Assessments Start: 11/16/23 16:11 Freq: Status: Active Protocol: Document 11/16/23 16:11 CGR (Rec: 11/16/23 16:36 CGR [id number]) OT Gross Range of Motion Upper Extremity Range of Motion Assessment Right Impaired ROM Impairments R shld 0-45 OT Strength Comments Strength Comments R shld not tested L shld 3+/5 B arms and hands 4-/5 OT- Coordination Assessment Upper Extremity Finger to Nose Test Within Functional Limits Finger Tapping Test Within Functional Limits OT-Muscle Tone Assessment Muscle Tone WNL Yes OT Sensation Assessment Comments Summary Comments Pt states she has tingling in both hands but this is her baseline. Edema Edema Absent M9 OT- IP Assessment and Plan Start: 11/16/23 16:11 Freq: Status: Active Protocol: Document 11/17/23 13:51 CGR (Rec: 11/17/23 13:59 CGR [id number]) OT Summary Assessment and Plan Potential Rehabilitation Potential Good Analytic Complexity at Evaluation High Summary OT Impairments Pain,Range of Motion,Strength, Balance,Sensation,Functional Mobility,Grooming,Dressing, Toileting,Bathing,Toilet Transfers,Shower Transfers, Activity Tolerance Progress Towards Goals Slow Progress due to Pain,Slow Progress due to Activity Tolerance Assessment Summary Pt presents as a high complexity evaluation s/p admit for R TKA. Pt is wBAT but has significant pain to her non surgical knee making it difficult for her to perform mobility at this time. Pt did better with distance today but still needed significant assist for sit to stand from the chair. Pt will continue to benefit from therapy services and is still most appropriate for SNF upon discharge. Goals Grooming Goal Independent Dressing Goal Independent Toileting Goal Independent Bathing Goal Independent Toilet Transfer Goal Independent Shower Transfer Goal Independent Days to Meet Goals 15 Frequency of Treatment Frequency Of Treatment Once a Day Treatment Plan OT Treatment Plan ADL Training,Functional Mobility,Patient/Family Education,Discharge Planning Other Treatment Recommendations and Next ADLS standing if able, shower, Treatment Focus toileting Discharge Recommendations OT Discharge Recommendations SNF Rehab Transportation Needs at Discharge Wheelchair/Cabulance
--- NOTE | 2023-11-17 14:45 | PT.IPTN ---
Current Diagnoses Unilateral primary osteoarthritis, right knee (11/15/23) Surgery Performed Operation Date: 11/15/23 10:45 Actual Procedures p Total Knee Arthroplasty - Robot(Right) - Zoila Davies MD Physical Therapy Treatment Note M2 PT-IP Current Condition Start: 11/16/23 13:57 Freq: NEEDED Status: Active Protocol: Document 11/16/23 12:00 DLM (Rec: 11/16/23 14:22 DLM [id number]) Physical Therapy Current Condition Current Condition Evaluation Date 11/16/23 Treatment Diagnosis right total knee arthroplasty, impaired gait and mobility Onset Date 11/15/23 M3 PT-IP Subjective Start: 11/16/23 13:57 Freq: NEEDED Status: Active Protocol: Document 11/17/23 15:08 TS (Rec: 11/17/23 15:17 TS [id number]) Subjective Physical Therapy Visit Type Type Treatment Note Visit Start Time 14:45 Visit Stop Time 15:08 Number of HEALTH PROFESSIONAL Visits 3 Physical Therapy Visit Comments Patient Comments Pt found resting in chair, reports she's been up with nursing to brush her teeth, is agreeable to PT. Therapy Pain Assessment Pain When Pain Assessed During Mobility Pain Present Pain Present Pain Reported M4 PT-IP Mobility and Gait Start: 11/16/23 13:57 Freq: NEEDED Status: Active Protocol: Document 11/17/23 15:08 TS (Rec: 11/17/23 15:17 TS [id number]) PT-Transfer Assessment Sit to and From Stand Sit to and from Stand Maximum Assistance,1 Person Assistance,Use of Upper Extremities Equipment Transfer Assistive Device Gait Belt,Front Wheeled Walker Comments Mobility Comments Pt performed ankle pumps, quad sets and heel slides prior to mobility. STS from chair MaxA with use of FWW, pt required max cues for sequencing. She has a posterior lean and improves balance with cues for upright posture. She ambulated ~12' in room CGA/ Thea with FWW, pt reports feeling unsteady and has some shaking. She ambulated back to chair, required max cues for stand to sit. Pt was left in chair, all needs met. Gait Assessment Gait Gait Assistance Required: Contact Guard Assist,Minimum Assistance Distance (Feet) 12 Able to Maintain Weight Bearing Status Yes During Gait Assistive Devices Assistive Device Gait Belt,Front Wheeled Walker Gait Deviations General Gait Pattern Antalgic,Decreased Stride Length,Flexed Trunk,Step-to Gait Factors Limiting Gait Function Factors Limiting Gait Function Decreased Activity Tolerance, Decreased Strength,Limited Range of Motion,Pain,Poor Balance Comments Gait Comments See mobility comments PT-Balance Assessment Sitting Balance and Reactions Static Sitting Balance Ability Good Dynamic Sitting Balance Ability Fair Standing Balance and Reactions Static Standing Balance Ability Fair Dynamic Standing Balance Ability Fair Device Used FWW M5 PT-IP Objective Assessments Start: 11/16/23 13:57 Freq: NEEDED Status: Active Protocol: Document 11/16/23 12:00 DLM (Rec: 11/16/23 14:22 DLM [id number]) Orientation Orientation/Cognition Level of Alertness Alert Orientation Name,Age,Birthday,Month,Date, Year,Day of Week,Place, Situation Language Function Ability No Deficits Noted Safety Awareness Understands Safety Issues Memory Description No Deficits Noted Gross Range of Motion Upper Extremity ROM Assessment Right Impaired Impairments see OT notes, pt has hx injury to righ shoulder Lower Extremity ROM Assessment Right Impaired Impairments post-op TKA, knee 20-70 degrees with pain Strength Upper Extremity Strength Assessment Right Impaired Shoulder shoulder decreased, see OT notes for details Lower Extremity Strength Assessment Bilaterally Impaired Hip flex 2+/5 on right, left 4/5 Knee ext 2+/5 on right, left 4/5 Ankle DF 4+/5 Comments Strength Comments post-op pain right knee limits functional strength pt reports arthritic pain in left knee limits functional strength Coordination Assessment Gross Coordination Gross Coordination WNL Sensation Assessment Sensation Gross Sensation Right UE Impaired,Left UE Impaired Sensation Description Tingling Comments Sensation Comments hx neuropathy per chart, pt reports tingling in fingers, dale wrap covering right LE post-op Muscle Tone Muscle Tone WNL Yes M6 PT-IP Treatment Start: 11/16/23 13:57 Freq: NEEDED Status: Active Protocol: Document 11/17/23 15:08 TS (Rec: 11/17/23 15:17 [id number]) Physical Therapy Treatment Exercises Exercises Ankle Pumps,Quad Sets,Heel Slides Education Education Provided Weight Bearing Status,Post-Op Packet,Safety M7 PT-IP Assessment and Plan Start: 11/16/23 13:57 Freq: NEEDED Status: Active Protocol: Document 11/17/23 15:08 TS (Rec: 11/17/23 15:17 [id number]) PT Summary Assessment and Plan Potential Rehabilitation Potential Good Summary Impairments Pain,ROM,Strength,Balance,Bed Mobility,Transfers,Gait, Activity Tolerance Progress Towards Goals Slow Progress due to Pain,Slow Progress due to Activity Tolerance Assessment Summary Kate continues to make slow progress with her mobility. She is MaxA for STS from chair with use of FWW, continues to retrolean. She ambulated a short distance in room ~12'CGA /Thea with a slow antalgic gait. She doesn;t demosntrate carryover of STS technique and sequencing of gait. PT continues to recommend SNF rehab. Goals Bed Mobility Goal Independent Transfer Goal Independent,Front Wheeled Walker Gait Goal Independent,Front Wheel Walker Gait Distance 50 feet Other Goals up/down one step with rail and min assist Days to Meet Goals 10 Frequency of Treatment Frequency Of Treatment Twice a Day Treatment Plan Physical Therapy Treatment Plan Bed Mobility Training,Transfer Training,Gait Training, Therapeutic Exercise,Balance Retraining,Post Op Education, Discharge Planning,Hot or Cold Pack,Neuromuscular Re-ed Precautions Other Precautions fall risk, other arthritic joints with crepitus Weight Bearing Status Weight Bearing Status Weight Bear as Tolerated Allowed Weight Bearing Amount (enter % Right knee or #) (%) Recommendations To Nursing Amount of Assist Needed 2 Person Assist Discharge Recommendations PT Discharge Recommendations SNF Rehab Transportation Needs at Discharge Wheelchair/Cabulance
[2023-11-17 17:00] VITALS: BP 104/41; PULSE 78; RESP 16; TEMP 36.2; O2SAT 99
[2023-11-17 20:00] VITALS: BP 125/54; PULSE 73; RESP 18; TEMP 36.8; O2SAT 98
[2023-11-17] MEDS: ATORVASTATIN 20 MG TABLET 10 MG PO (21:15)
[2023-11-17] MEDS: TRAZODONE 50 MG TABLET PO (21:16)
[2023-11-17] MEDS: polyethylene glycoL 3350 17 GM POWD.PACK PO (21:30)
--- NOTE | 2023-11-18 07:51 | PM.DS.1 ---
History of Present Illness History of Present Illness Chief complaint: INPT Narrative: Kate is a pleasant 78-year-old female who is postop day #3 s/p R TKA by Dr. Davies. She reports she is overall doing well and looking forward to d/c to SNF today. Patient lives alone, does not have a good support system and had concerns about d/c to home without support given her lack of mobility. No significant change in her pain since yesterday. Her pain is mild and well controlled but she is still struggling to get mobility/function back of her right knee. She has been able to get out of bed to urinate with support but states she feels very unsteady. She currently has a pure wik in place. Denies any numbness or tingling of the RLE. Denies fever, chills, chest pain, or shortness of breath, nausea, vomiting. Operative Date/Time/Diagnoses Date of procedure: 11/15/23 Time of procedure: 11:00 Pre-op diagnosis: Right total knee arthroplasty Post-op diagnosis: same Procedure & Clinicians Procedure: Right total knee Same procedure as scheduled: Yes Indications: The patient has had progressively worsening right knee pain with radiographic changes consistent with arthritis. Non-operative management has failed and the patient has requested total knee replacement. The risks, benefits and alternatives to surgery were discussed with the patient prior to proceeding. Risks discussed included, but were not limited to, failure to relieve pain, stiffness, infection, nerve damage, deep venous thrombosis, pulmonary embolism, stroke, coma, heart attack, permanent paralysis and , as well as the potential need for eventual revision of the prosthetic. Surgeon: Zoila Davies Flap Lining Binder: Stephon Baron Anesthesia Type: Spinal Discharge Providers Provider Date of admission: 11/15/23 08:46 Discharge Date: 11/18/23 Primary care physician: HAZEL Landon Consults: 11/15/23 06:00 Consult to Anesthesiology Routine Comment: Consulting Provider: Anesthesiologist Reason for consultation: Regional block for post operative pain control 11/15/23 14:51 Consult to Discharge Planning Routine Comment: Consult to Occupational Therapy Evaluate & Treat Comment: Physician Instructions: Evaluate and treat Consult to Physical Therapy Evaluate & Treat Comment: Physician Instructions: postop TKA protocol 11/16/23 08:39 Consult to Home Health Routine Comment: PT, OT Reason For Exam: Home Health Services Discharge provider: Aditi Boyer PA-C Summary Hospital Course Discharge Diagnosis: Right knee OA s/p R TKA Hospital Course: Hospital course complicated by poor mobility and ROM s/p R TKA Exam Vital Signs (past 8 hours): Oxygen Delivery Method Room Air Oxygen Flow Rate 0 Narrative Exam Narrative: Patient lying in bed comfortably today with dressing intact over the right knee. Const General: cooperative, healthy appearing and comfortable Resp Effort & Inspection: normal respiratory effort and able to speak in complete sentences Cardio Rate: regular rate Skin General: no rashes or lesions noted Neuro General: patient alert, patient awake and patient oriented x3 Extrem Other: Grossly normal alignment, moderate right knee effusion. Joao dressing intact and functioning with scant bloody discharge. 5/5 strength with EHL, DF. 4/5 PF. Very limited ROM of the right knee. Sensation intact throughout the RLE. Calves soft and non-tender bilaterally. 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 1) ASA 81mg BID x 6 weeks for VTE prophylaxis. 2) Continue multimodal pain management, medication list printed and Rx signed for SNF. 3) Continue to aggressively work on range of motion. 4) Keep dressing clean, dry and intact until 2 week post-op appointment. No soaking the incision site in pools or tubs. No topical ointments or creams to the incision site. 5) F/u in office at [facility] in 2 weeks as scheduled. Discharge Plan Discharge Plan Patient Disposition: SNF Transfer to: [facility] Provider Discharge Comment: [facility] Discharge orders & Medications Prescriptions: New oxycodone 5 mg Tablet 5 mg PO Q4-6H PRN (Reason: Pain, Moderate (4-6)) Qty: 30 0RF ondansetron 4 mg Tablet,Disintegrating 4 mg PO Q4HR PRN (Reason: Nausea And Vomiting) Qty: 14 0RF docusate sodium 100 mg Capsule 100 mg PO BID Qty: 30 0RF ibuprofen 400 mg Tablet 400 mg PO Q4H PRN (Reason: Pain, Mild (1-3)) Qty: 90 0RF aspirin 81 mg Tablet,Delayed Release (Dr/Ec) 81 mg PO BID Qty: 120 0RF acetaminophen 325 mg Tablet 650 mg PO Q6H PRN (Reason: Fever/Mild Pain (1-3)) Qty: 120 0RF Continued magnesium oxide 400 MG tablet 400 mg PO QDAY Qty: 0 omega 5-axk-yon-fish oil [Fish Oil] 1,000 MG capsule 1,000 mg PO QDAY Qty: 0 turmeric root extract 500 mg Capsule 2,000 mg PO DAILY Qty: 0 trazodone 50 mg Tablet 50 mg PO BEDTIME atorvastatin 10 mg Tablet 10 mg PO BEDTIME hydrochlorothiazide 25 mg Tablet 25 mg PO DAILY metoprolol succinate 25 mg Tablet Extended Release 24 Hr 25 mg PO DAILY lisinopril 40 mg Tablet 40 mg PO DAILY Discontinued acetaminophen 500 mg Capsule 1,000 mg PO DAILY Follow up/Referrals: Malini Merida ARNP [Primary Care Provider] - Zoila Davies MD [Physician] - 11/29/23 1:30 pm (Follow up w/ Romulo Thompson PA-C, at [facility] in [place].) Diet/Activity/Treatments Diet: Diet as Tolerated Activity: Walk frequently! Weight bearing as tolerated. Cold/Heat Therapy: Ice to knee as needed for pain. Skin/Wound/Dressing Care Report to your healthcare provider any signs of infection, such as:: chills, fever, night sweats, unusual drainage and unusual redness Dressing: May remove RALPH wrap and shower on 11/18/2023. Keep dressing in place until follow up in office. Battery light will start flashing red in 5-7 days, at which point you can cut off the battery pack and dispose of it, but keep the dressing on. No bathing or otherwise soaking incision. Call the office if the dressing becomes saturated inside. [facility] Reason for rehabilitation: Post-operative therapy Rehab type: Physical therapy Visit Report/Discharge Packet Instructions: DI for Knee Replacement, DI for Prescription Opioid Use Stand Alone Forms: Patient Portal/API, Stroke Signs & Symptoms, Surgery Discharge Discharge Data Primary Care Provider: Malini Merida VTE Deep Vein Thrombosis/Pulmonary Embolism Present on Admission: No
--- NOTE | 2023-11-18 08:16 | CM.DPC ---
DCP Cont. Reviewed EMR and team rounds for status updates. Plan is for pt to be picked up by [facility] at 11:00am today. Clinicals and scrips obtained and will be with the pt's packet. PASSAR completed and faxed. No further DCP needs identified at this time.
[2023-11-18 08:54] VITALS: BP 130/48; PULSE 81; RESP 16; TEMP 36.7; O2SAT 99
--- NOTE | 2023-11-18 09:00 | OT.IP.TRT ---
Current Diagnoses Unilateral primary osteoarthritis, right knee (11/15/23) Surgery Performed Operation Date: 11/15/23 10:45 Actual Procedures p Total Knee Arthroplasty - Robot(Right) - Zoila Davies MD Occupational Therapy Treatment Note M2 OT-IP Current Condition Start: 11/16/23 16:11 Freq: Status: Active Protocol: Document 11/16/23 16:11 CGR (Rec: 11/16/23 16:36 CGR [id number]) Occupational Therapy Current Condition Current Condition Evaluation Date 11/16/23 Treatment Diagnosis R TKA, WBAT Diagnosis Onset Date 11/15/23 Weight Bearing Status Weight Bearing Status Weight Bear as Tolerated M3 OT- IP Subjective and Pain Start: 11/16/23 16:11 Freq: Status: Active Protocol: Document 11/18/23 09:00 [facility] (Rec: 11/18/23 09:05 [facility] [id number]) OT- Subjective Occupational Therapy Visit Type Type Treatment Note Visit Start Time 08:45 Visit Stop Time 09:00 Occupational Therapy Visit Comments Patient Comments Pt not wanting to get up at this time but agreed to sponge off. Patient/Caregiver Goals TO get better OT Pain Assessment Pain When Pain Assessed At Rest Pain Present Pain Present Pain Reported Location Right Knee Intensity 2 Scale Used Numeric (0 - 10) M4 OT- IP ADL's Start: 11/16/23 16:11 Freq: Status: Active Protocol: Document 11/18/23 09:00 [facility] (Rec: 11/18/23 09:05 [facility] [id number]) OT ADL-Grooming General Evaluation Grooming Ability Independent Comments OT Grooming Comments WHile seated. OT ADL-Oral Care General Eval Oral Care Ability Independent Comments Oral Care Comments Pt wanting to perform while seated. OT ADL-Dressing Comments OT Dressing Comments Re-emphasized to dress her RLE first and take out last. OT ADL-Toileting Comments OT Toileting Comments Educated pt to be mindful of her RLE positioning while wiping. OT ADL-Bathing Bathing Type Bathing Type Sponge Bath General Evaluation Bathing Ability Maximal Assistance Comments OT Bathing Comments Pt able to sponge off her arms and arm pits and assist with her back. Pt not wanting to stand for other needs. M5 OT- IP IADL's Start: 11/16/23 16:11 Freq: Status: Active Protocol: Document 11/16/23 16:11 CGR (Rec: 11/16/23 16:36 CGR [id number]) OT-Instrumental Activities of Daily Living Deficits IADL Deficits Identified No Deficits Home Safety Awareness Awareness of Need for Assistance at Home Good Awareness Ability to Problem Solve Emergency Able to Problem Solve Situations Medication Management Medication Management No Deficits Identified Money Management Money Management No Deficits Identified Meal Preparation Meal Preparation Comments Concerns regarding pt's ability to perform, pt states caregivers can assist. Loading Machine Adjuster Loading Machine Adjuster Comments Concerns regarding pt's ability to perform, pt states caregivers can assist. 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 M6 OT- IP Functional Cognition Start: 11/16/23 16:11 Freq: Status: Active Protocol: Document 11/18/23 09:00 [facility] (Rec: 11/18/23 09:05 [facility] [id number]) Cognitive Factors Limiting Selfcare Function Cognitive Comments Cognitive Assessment Comments At baseline. M7 OT- IP Mobility and Balance Start: 11/16/23 16:11 Freq: Status: Active Protocol: Document 11/17/23 13:51 CGR (Rec: 11/17/23 13:59 CGR [id number]) OT-Transfer Assessment Sit to and From Stand Sit to and from Stand Maximum Assistance,1 Person Assistance Transfers Transfer Ability Minimal Assistance,1 Person Assistance Technique Transfer Destination Bedside Commode,Chair Transfer Technique Stand Step Pivot Devices Transfer Assistive Devices Gait Belt,Front Wheeled Walker Comments Mobility Comments Pt stood with max a from chair , she needs assist with placing feet and physical assist for sit to stand. Pt then ambualted with significantly hunched posture to sink for ADLs, then back to BSC next to chair for urination and then stood with max a from BSC and transfered back to chair. Pt with uncontrolled stand to sit even with vc to use arms etc. It appears that pt can't bend her L knee far enough to allow for a controlled descent. OT- Balance Assessment Sitting Balance and Reactions Static Sitting Balance Ability Fair Dynamic Sitting Balance Ability Fair M8 OT- IP Objective Assessments Start: 11/16/23 16:11 Freq: Status: Active Protocol: Document 11/16/23 16:11 CGR (Rec: 11/16/23 16:36 CGR [id number]) OT Gross Range of Motion Upper Extremity Range of Motion Assessment Right Impaired ROM Impairments R shld 0-45 OT Strength Comments Strength Comments R shld not tested L shld 3+/5 B arms and hands 4-/5 OT- Coordination Assessment Upper Extremity Finger to Nose Test Within Functional Limits Finger Tapping Test Within Functional Limits OT-Muscle Tone Assessment Muscle Tone WNL Yes OT Sensation Assessment Comments Summary Comments Pt states she has tingling in both hands but this is her baseline. Edema Edema Absent M9 OT- IP Assessment and Plan Start: 11/16/23 16:11 Freq: Status: Active Protocol: Document 11/18/23 09:00 [facility] (Rec: 11/18/23 09:05 [facility] [id number]) OT Summary Assessment and Plan Potential Rehabilitation Potential Good Analytic Complexity at Evaluation High Summary OT Impairments Pain,Range of Motion,Strength, Balance,Sensation,Functional Mobility,Grooming,Dressing, Toileting,Bathing,Toilet Transfers,Shower Transfers, Activity Tolerance Progress Towards Goals Slow Progress due to Pain,Slow Progress due to Activity Tolerance Assessment Summary Pt able to particpate in grooming,oral care and sponging off while seated today. Pt to go to skilled rehab today. Pt mainly having much difficulty coming to stand, prior pt used her lift chair to assist her to stand. Goals Grooming Goal Independent Dressing Goal Independent Toileting Goal Independent Bathing Goal Independent Toilet Transfer Goal Independent Shower Transfer Goal Independent Days to Meet Goals 15 Frequency of Treatment Frequency Of Treatment Once a Day Treatment Plan OT Treatment Plan ADL Training,Functional Mobility,Patient/Family Education,Discharge Planning Discharge Recommendations OT Discharge Recommendations SNF Rehab Transportation Needs at Discharge Wheelchair/Cabulance
[2023-11-18 09:02] VITALS: BP 130/48; PULSE 81
[2023-11-18] MEDS: MAGNESIUM OXIDE 400 MG TABLET PO (09:02)
[2023-11-18] MEDS: ASPIRIN EC 81 MG TABLET PO (09:02)
[2023-11-18] MEDS: DOCUSATE 100 MG CAPSULE PO (09:02)
[2023-11-18] MEDS: FISH OIL 1,000 MG CAPSULE 1000 MG PO (09:02)
[2023-11-18] MEDS: lisinopriL 20 MG TABLET 40 MG PO (09:02)
[2023-11-18] MEDS: hydroCHLOROthiazide 25 MG TABLET PO (09:02)
[2023-11-18] MEDS: METOPROLOL ER 25 MG TABLET PO (09:02)
[2023-11-18] MEDS: polyethylene glycoL 3350 17 GM POWD.PACK PO (09:03)
[2023-11-18] MEDS: OXYCODONE IR 5 MG TABLET PO (09:03)
[2023-11-18] MEDS: ACETAMINOPHEN 325 MG TABLET 650 MG PO (09:04)
--- NOTE | 2023-11-18 12:29 | PC.NURSE ---
Patient is A&OX4, VSS, afebrile on RA. She is cleared medically and from ortho for discharge to SNF for rehab today. She is able to stand with x1 assist, needing some assistance and able to take a few small steps to BSC and to chair. She reports pain to R knee tolerable with prn pain med 5mg po oxycodone and prn tylenol. She has a naomi dressing in place, it is c/d/i with green light flashing. +CMS to BLE's. She verbalizes understanding and agreement with medications, activity limitations, site care, s/sx of infection as well as follow up post op appointment. She is escorted via w/ch by facility transportee to [place] for transport to [facility] today at 1130. She has all of her belongings with her including new FWW. Report called to Miladis ESQUIVEL at [facility] left message.
== END 2023-11-18 11:30 | DRG 470 ==
PROVIDERS: Admitting Provider Orthopaedic Surgery; PCP Nurse Practitioner; Referring Provider Orthopaedic Surgery; Visit Provider Orthopaedic Surgery
PROC: 0SRC0JZ Replacement of Right Knee Joint with Synthetic Substitute, Open Approach (ICD-10-PCS; CPT 27447; principal; 2023-11-15 10:45)
DX: M17.11 Unilateral primary osteoarthritis, right knee (principal); I10 Essential (primary) hypertension
CPT/HCPCS: 36415; 64450; 73560; 85014; 85018; 93005; 93010; 97110; 97116; 97162; 97167; 97530; 97535; C1776; A9270; C9290; J0171; J0690; J1100; J1170; J2405; J2704